=== PATIENT | male | born 1970 | race Caucasian/White ===

== ENCOUNTER 2017-05-12 18:35 | Emergency (ER) | payer OTHER ==
[~2017-05-12] VITALS: Ht 195.6 cm; Wt 119.0 kg
[2017-05-12 21:33] VITALS: BP 135/87
== END 2017-05-12 21:33 | disposition home or self-care (01) ==
LOC: EME 18:35
DX: R51 Headache (principal); G62.9 Polyneuropathy, unspecified
CPT/HCPCS: 70450; 99281; 99284; J1885